=== PATIENT | female | born 1960 | race Caucasian/White ===

== ENCOUNTER → 2017-11-30 | Emergency (ER) | payer OTHER ==
[~2017-11-30] VITALS: Ht 165.1 cm; Wt 93.9 kg
== END | disposition home or self-care (01) ==
LOC: ER 20:51
DX: R10.84 Generalized abdominal pain (principal); T40.4X1A Poisoning by other synthetic narcotics, accidental (unintentional), initial encounter; Y92.098 Other place in other non-institutional residence as the place of occurrence of the external cause; R11.2 Nausea with vomiting, unspecified